=== PATIENT | female | born 1970 | race Caucasian/White ===

== ENCOUNTER 2017-06-27 18:35 | Emergency (ER) | payer OTHER ==
[~2017-06-27] VITALS: Ht 157.5 cm; Wt 67.0 kg
[2017-06-27 18:38] VITALS: BP 137/77; PULSE 78; RESP 16; TEMP 98.6; O2SAT 94
[2017-06-27] MEDS ORDERED: ALBUAER3 INH (20:46)
[2017-06-27] MEDS ORDERED: PRED20 PO (20:46)
--- NOTE | 2017-06-27 20:46 | PD ---
HPI Chief Complaint: Cold / Flu Symptoms Time Seen by Provider: 19:47 Travel History International Travel<30 days: No Contact w/Intl Traveler<30days: No Traveled to known affect area: No History of Present Illness HPI This is a 47-year-old female here with body aches, low-grade fever, cough, diarrhea 2-3 days. Symptom severity is moderate. No aggravating factors. Symptoms slightly improved with Tylenol. No sick contacts or foreign travel. She denies abdominal pain. PFSH Past Medical History Asthma: Yes Inguinal Hernia: Yes (r) Respiratory: Yes (ASTHMA) Tetanus Vaccination: < 5 Years Influenza Vaccination: No ?: Not LMP: "last week" Ectopic : Yes Past Surgical History Section: Yes (x3) Oral Surgery: Yes (3 knee surgeries) Tonsillectomy: Yes Social History Alcohol Use: Yes (weekly a beer) Tobacco Use: Yes (1ppd) Substance Use: No Allergies-Medications (Allergen,Severity, Reaction): Coded Allergies: No Known Allergies (Unverified , 06/27/17) Reported Meds & Prescriptions Reported Meds & Active Scripts Active No Active Prescriptions or Reported Medications Review of Systems Except as stated in HPI: all other systems reviewed are Neg General / Constitutional: Positive: Fever Eyes: No: Visual changes HENT: Positive: Sore Throat, Congestion Cardiovascular: No: Chest Pain or Discomfort Respiratory: Positive: Cough Gastrointestinal: Positive: Diarrhea, No: Abdominal Pain Genitourinary: No: Dysuria Musculoskeletal: Positive: Myalgias Skin: No Rash Physical Exam Narrative GENERAL: Alert and well-appearing 47-year-old female. SKIN: Warm and dry. No rash HEAD: Normocephalic. EYES: No injection or drainage. Ears/nose/throat: No TM erythema. Clear nasal discharge. Mild pharyngeal erythema without tonsillar hypertrophy or exudate. NECK: Supple. No meningismus. CARDIOVASCULAR: Regular rate and rhythm RESPIRATORY: Breath sounds equal bilaterally. No accessory muscle use. Mild expiratory wheeze which clears with cough GASTROINTESTINAL: Abdomen soft, non-tender, nondistended. No guarding or rebound MUSCULOSKELETAL: No cyanosis, or edema. Data Data Last Documented VS Vital Signs Date Time Temp Pulse Resp B/P (MAP) Pulse Ox O2 Delivery O2 Flow Rate FiO2 06/27/17 18:38 98.6 78 16 137/77 (97) 94 Orders Orders Influenzae A/B Antigen (06/27/17 19:52) [facility] Medical Decision Making Medical Screen Exam Complete: Yes Emergency Medical Condition: Yes Differential Diagnosis Influenza, pneumonia, gastroenteritis, Narrative Course This is a 47-year-old female with history of asthma presents with mild flulike illness. She reports several episodes of nonbloody diarrhea yesterday. No diarrhea today. She appears well-hydrated. She does have loud expiratory wheezes. She has a history of asthma and does not have an albuterol inhaler. Influenza is negative. She is outside the timeframe to treatment Tamiflu. I suspect that this is viral in nature. She will be treated with short dose of steroids and bronchodilators for her asthma. Symptomatically treatment a viral infection discussed. Diagnosis Primary Impression: Influenza-like illness Referrals: Primary Care Physician Additional Instructions: Tylenol and ibuprofen for pain and fever. Follow-up plan diet. Steroids as directed. Albuterol inhaler as needed for wheezing Scripts Albuterol 8.5 GM Inh (Proair Hfa 8.5 GM Inh) 90 Mcg/Act Aer 2 PUFF INH Q4-6H Y for SHORTNESS OF BREATH, #1 INHALER 0 Refills 108 mcg/actuation Prov: Marielos Alegre 06/27/17 Prednisone (Prednisone) 20 Mg Tab 40 MG PO DAILY, #8 TAB 0 Refills Take 40 mg (2 tablets) daily for 5 days Prov: Marielos Alegre 06/27/17 Disposition: 01 DISCHARGE HOME Condition: Stable Marielos Alegre Jun 27, 2017 20:46
== END 2017-06-27 20:47 | disposition home or self-care (01) ==
LOC: PHEFT 18:35
DX: R05 Cough (principal); R19.7 Diarrhea, unspecified; J45.909 Unspecified asthma, uncomplicated; F17.200 Nicotine dependence, unspecified, uncomplicated
CPT/HCPCS: 87804; 99283